=== PATIENT | male | born 1945 | race Caucasian/White ===

== ENCOUNTER → 2017-03-20 | Outpatient (CLI) | payer OTHER | END | disposition home or self-care (01) | LOC: LAB.O 09:09 | PROVIDERS: ATTEND Nurse Practitioner Family | DX: I10 Essential (primary) hypertension (principal); N40.1 Benign prostatic hyperplasia with lower urinary tract symptoms ==

== ENCOUNTER → 2017-05-07 | Outpatient (CLI) | payer OTHER ==
--- NOTE | 2017-05-07 17:02 | US ---
EXAM DESCRIPTION: Aorta CLINICAL HISTORY: 71 years, Male, ABD ARTERY ANEURYSM COMPARISON: None. FINDINGS: Proximal abdominal aorta 2.2 x 2.4 cm. Midabdominal aorta 1.9 x 1.9 cm and lower abdominal aorta 2.0 x 2.3 cm. Proximal right iliac 1.2 cm. Proximal left iliac 1.0 cm. IMPRESSION: No significant dilatation or aneurysm. Mild atherosclerotic change. Electronically signed by: Ari Beltran MD 05/07/2017 5:01 PM CDT
== END | disposition home or self-care (01) ==
LOC: US 08:34
PROVIDERS: ATTEND Internal Medicine Cardiovascular Disease
DX: I71.3 Abdominal aortic aneurysm, ruptured (principal)

== ENCOUNTER → 2018-03-01 | Outpatient (CLI) | payer OTHER | LOC: LAB.O 11:41 | PROVIDERS: ATTEND Nurse Practitioner Family | DX: N40.1 Benign prostatic hyperplasia with lower urinary tract symptoms (principal); I10 Essential (primary) hypertension; E78.5 Hyperlipidemia, unspecified ==

== ENCOUNTER → 2018-09-27 | Outpatient (CLI) | payer OTHER | LOC: LAB.O 10:49 | PROVIDERS: ATTEND Urology | DX: R97.20 Elevated prostate specific antigen [PSA] (principal) ==

== ENCOUNTER → 2019-06-01 | Outpatient (CLI) | payer OTHER | LOC: LAB.O 13:27 | PROVIDERS: ATTEND Urology | DX: R97.20 Elevated prostate specific antigen [PSA] (principal) ==

== ENCOUNTER → 2019-11-30 | Outpatient (CLI) | payer MEDICARE | LOC: LAB.O 14:28 | PROVIDERS: ATTEND Urology | DX: R97.20 Elevated prostate specific antigen [PSA] (principal); I10 Essential (primary) hypertension; N40.0 Benign prostatic hyperplasia without lower urinary tract symptoms ==

== ENCOUNTER → 2020-06-18 | Outpatient (CLI) | payer MEDICARE | LOC: LAB.O 10:13 | PROVIDERS: ATTEND Nurse Practitioner | DX: R97.20 Elevated prostate specific antigen [PSA] (principal); I10 Essential (primary) hypertension; R39.12 Poor urinary stream ==

== ENCOUNTER → 2020-08-04 | Outpatient (CLI) | payer MEDICARE | LOC: LAB.O 13:08 | PROVIDERS: ATTEND Internal Medicine Cardiovascular Disease | DX: I10 Essential (primary) hypertension (principal); E78.2 Mixed hyperlipidemia ==

== ENCOUNTER → 2020-10-10 | Outpatient (CLI) | payer MEDICARE | LOC: LAB.O 09:54 | PROVIDERS: ATTEND Internal Medicine Cardiovascular Disease | DX: E78.2 Mixed hyperlipidemia (principal); I10 Essential (primary) hypertension; R97.20 Elevated prostate specific antigen [PSA] ==